=== PATIENT | male | born 1955 | race Asian ===

== ENCOUNTER 2017-08-10 10:30 | Emergency (ER) | payer BC ==
[2017-08-10 10:36] VITALS: TEMP 99.2; BMI 26.1
--- NOTE | 2017-08-10 10:37 | PDOC ---
History of Present Illness - General Chief Complaint: Shortness of Breath Stated Complaint: SOB Time Seen by Provider: 08/10/17 10:36 - History of Present Illness Initial Comments: 08/10/17 10:37 Mr. Richardson is a 62 yo male w/ pmh of HTN, HLD, DM, Lymphoma, and Asthma who presents for evaluation of 3 days of shortness of breath / cough with concurrent congestion and runny nose. He reports cough is non-productive and that he has had a previous episode requiring antibiotics last month while on vacation. He also reports subjective fever at home yesterday. The patient denies chest pain, headache and dizziness. Denies fever, chills, nausea, vomit, diarrhea and constipation. Denies dysuria, frequency, urgency and hematuria. Allergies: NKDA Past History - Past Medical History Allergies/Adverse Reactions: Allergies Allergy/AdvReac Type Severity Reaction Status Date / Time No Known Allergies Allergy Verified 08/10/17 10:32 Home Medications: Ambulatory Orders Acetaminophen W/ Codeine Liq [Tylenol W/Codeine Oral Solution -] 5 ml PO Q8H PRN #120 ml MDD 15 ml 08/10/17 Albuterol 2.5/Ipratropium 0.5 [Duoneb -] 1 neb NEB Q4H 08/10/17 Amlodipine Besylate 10 mg PO DAILY 08/10/17 Azithromycin 250 mg PO DAILY #3 tablet 08/10/17 Budesonide/Formeterol Fumarate [SYMBICORT 160/4.5mcg -] 1 inh PO BID 08/10/17 Ezetimibe/Simvastatin [Vytorin 10-10 mg Tablet] 1 tab PO ASDIR 08/10/17 Fenofibric Acid [Trilipix -] 135 mg PO ASDIR 08/10/17 Glimepiride 1 mg PO DAILY 08/10/17 Metformin HCl 500 mg PO BID 08/10/17 Mometasone Furoate [Asmanex 110Mcg -] 1 inh IH BID 08/10/17 Prednisone [Prednisone 50 MG TABLETS] 50 mg PO DAILY #4 tablet 08/10/17 Primidone [Mysoline -] 100 mg PO BID 08/10/17 Asthma: Yes COPD: No Diabetes: Yes HTN: Yes Hypercholesterolemia: Yes - Suicide/Smoking/Psychosocial Hx Smoking History: Current every day smoker Have you smoked in the past 12 months: Yes Number of Cigarettes Smoked Daily: 3 Information on smoking cessation initiated: Yes 'Breaking Loose' booklet given: 08/10/17 Hx Alcohol Use: No Drug/Substance Use Hx: No Substance Use Type: None Review of Systems - Review of Systems Comments:: 08/10/17 10:37 GENERAL/CONSTITUTIONAL: No fever or chills. No weakness. HEAD, EYES, EARS, NOSE AND THROAT: No change in vision. No ear pain or discharge. No sore throat. CARDIOVASCULAR: +Shortness of breath as described. No chest pain. RESPIRATORY: +Cough with wheezing over last 3 days, No hemoptysis. GASTROINTESTINAL: No nausea, vomiting, diarrhea or constipation. GENITOURINARY: No dysuria, frequency, or change in urination. MUSCULOSKELETAL: No joint or muscle swelling or pain. No neck or back pain. SKIN: No rash NEUROLOGIC: No headache, vertigo, loss of consciousness, or change in strength/ sensation. ENDOCRINE: No increased thirst. No abnormal weight change HEMATOLOGIC/LYMPHATIC: No anemia, easy bleeding, or history of blood clots. ALLERGIC/IMMUNOLOGIC: No hives or skin allergy. *Physical Exam - Vital Signs Last Vital Signs Temp Pulse Resp BP Pulse Ox 99.2 F 111 H 22 154/74 100 08/10/17 10:32 08/10/17 10:32 08/10/17 10:32 08/10/17 10:32 08/10/17 10:32 - Physical Exam Comments: 08/10/17 10:37 GENERAL: Awake, alert, and fully oriented, in no acute distress HEAD: No signs of trauma, normocephalic, atraumatic EYES: PERRLA, EOMI, sclera anicteric, conjunctiva clear ENT: Auricles normal inspection, hearing grossly normal, nares patent, oropharynx clear without exudates. Moist mucosa NECK: Normal ROM, supple, no lymphadenopathy, JVD, or masses LUNGS: +Patient diffusely wheezy to auscultation. HEART: Regular rate and rhythm, normal S1 and S2, no murmurs, rubs or gallops, peripheral pulses normal and equal bilaterally. ABDOMEN: Soft, nontender, normoactive bowel sounds. No guarding, no rebound. No masses EXTREMITIES: Normal inspection, Normal range of motion, no edema. No clubbing or cyanosis. NEUROLOGICAL: Cranial nerves II through XII grossly intact. Normal speech, normal gait, no focal sensorimotor deficits SKIN: Warm, Dry, normal turgor, no rashes or lesions noted. ED Treatment Course - LABORATORY CBC & Chemistry Diagram: 08/10/17 11:50 08/10/17 11:50 Medical Decision Making - Medical Decision Making 08/10/17 11:03 Mr. Richardson is a 62 yo male w/ pmh as described who presents for evaluation of SOB as described. Duoneb / prednisone given for symptomatic relief with labs / EKG/CXR ordered for evaluation of infectious / cardiac process. 08/10/17 13:08 No concern for acute process at this time. Labs grossly wnl as below. CXR clear , EKG normal. Patient to bedside who endorses patient has COPD and has been self treating with z-pack at home. Will continue azithromycin treatment outpatient. Prednisone 50 x 4 days also given. Patient reporting relief from symptoms and will follow-up as needed with PCP. Laboratory Results - last 24 hr 08/10/17 08/10/17 08/10/17 11:50 11:50 11:50 WBC 13.3 H RBC 4.82 Hgb 14.9 Hct 42.5 MCV 88.3 MCH 30.8 MCHC 34.9 RDW 14.8 Plt Count 178 MPV 9.0 Neutrophils % 80.4 Lymphocytes % 11.3 Monocytes % 7.2 Eosinophils % 0.2 Basophils % 0.9 Sodium 139 Potassium 3.5 Chloride 97 L Carbon Dioxide 26 Anion Gap 16 BUN 5 L Creatinine 1.0 Creat Clearance w eGFR > 60 Random Glucose 121 H Calcium 9.8 Total Bilirubin 0.6 AST 29 ALT 22 Alkaline Phosphatase 59 Creatine Kinase 221 Creatine Kinase Index 0.6 CK-MB (CK-2) 1.449 Troponin I < 0.02 B-Natriuretic Peptide Total Protein 8.0 Albumin 4.2 08/10/17 11:50 WBC RBC Hgb Hct MCV MCH MCHC RDW Plt Count MPV Neutrophils % Lymphocytes % Monocytes % Eosinophils % Basophils % Sodium Potassium Chloride Carbon Dioxide Anion Gap BUN Creatinine Creat Clearance w eGFR Random Glucose Calcium Total Bilirubin AST ALT Alkaline Phosphatase Creatine Kinase Creatine Kinase Index CK-MB (CK-2) Troponin I B-Natriuretic Peptide 402.50 H Total Protein Albumin *DC/Admit/Observation/Transfer Diagnosis at time of Disposition: COPD exacerbation - Prescriptions Prescriptions: Acetaminophen W/ Codeine Liq [Tylenol W/Codeine Oral Solution -] 5 ml PO Q6H PRN #120 ml MDD 20 ml PRN Reason: Cough Azithromycin 250 mg PO DAILY #3 tablet Prednisone [Prednisone 50 MG TABLETS] 50 mg PO DAILY #4 tablet - Referrals Referrals: Corwin Garcia MD [Primary Care Provider] - - Patient Instructions Printed Discharge Instructions: DI for Chronic Obstructive Pulmonary Disease Additional Instructions: Please return if any return of shortness of breath, fever, chills, pain, or other concerning symptoms. Follow-up with primary care provider next week for further evaluation. - Post Discharge Activity
[2017-08-10] MEDS ORDERED: ALBUTEROL SO4 2.5/IPRATROPIUM 0.5 INH SOL 3 ML VIAL.NEB. NEB ONE (11:11)
[2017-08-10] MEDS ORDERED: predniSONE 20 MG TABLET (UD) ONE (11:13)
[2017-08-10] MEDS ORDERED: predniSONE 10 MG TABLET (UD) ONE (11:13)
[2017-08-10] MEDS: ALBUTEROL SO4 2.5/IPRATROPIUM 0.5 INH SOL 3 ML VIAL.NEB. NEB SCH ×3 (11:18→13:40)
[2017-08-10] MEDS ORDERED: predniSONE 20 MG TABLET (UD) PO ONE (11:39)
[2017-08-10 12:04] LABS: BASO % 0.9 % (0-2.0); EOS % 0.2 % (0-4.5); HEMATOCRIT 42.5 % (35.4-49); HEMOGLOBIN 14.9 GM/dL (11.7-16.9); LYMPH % 11.3 % (8-40); MCH 30.8 pg (25.7-33.7); MCHC 34.9 g/dl (32.0-35.9); MEAN CELL VOLUME 88.3 fl (80-96); MONO % 7.2 % (3.8-10.2); NEUT % 80.4 % (42.8-82.8); PLATELET COUNT 178 K/MM3 (134-434); RBC 4.82 M/mm3 (4.00-5.60); RDW 14.8 % (11.9-15.9); WHITE BLOOD COUNT 13.3 K/mm3 (4.0-10.0)
[2017-08-10] MEDS ORDERED: ALBUTEROL SO4 0.083% IH SOL 2.5 MG/3 ML VIAL.NEB. NEB ONE ×2 (13:04→13:40)
--- NOTE | 2017-08-10 13:10 | PDOC ---
Attending Attestation - Resident Resident Name: Damian Wright - ED Attending Attestation I have performed the following: I have examined & evaluated the patient, The case was reviewed & discussed with the resident, I agree w/resident's findings & plan, Exceptions are as noted - HPI HPI: 08/10/17 13:06 "The patient is a 62 year old male, with a significant past medical history of asthma/COPD, hypertension, hyperlipidemia, diabetes, and lymphoma, who presents to the emergency department with, 3 days of shortness of breath, cough, congestion, and runny nose. He describes his cough as nonproductive. He reports a subjective fever yesterday but no measured temps. Pt has been using his albuterol nebulizer at home with some improvement. Pt was given azithromycin 500mg yesterday and today by his . He denies any recent nausea, vomit, diarrhea or constipation. He denies any recent chest pain. He denies any recent dysuria, frequency, urgency or hematuria. Allergies: NKA Past surgical history: None reported. Social History: Nonsmoker. Denies EtOH use and recreational drug use. Primary Care Physician: Dr. Garcia " - Physicial Exam PE: 08/10/17 13:08 "GENERAL: Awake, alert, and fully oriented, in no acute distress. HEAD: No signs of trauma EYES: PERRLA, EOMI, sclera anicteric, conjunctiva clear ENT: Auricles normal inspection, hearing grossly normal, nares patent, oropharynx clear without exudates. Moist mucosa NECK: Nontender, no stepoffs, Normal ROM, supple, no lymphadenopathy, JVD, or masses LUNGS: + expiratory wheezes HEART: Regular rate and rhythm, normal S1 and S2, no murmurs, rubs or gallops ABDOMEN: Soft, nontender, normoactive bowel sounds. No guarding, no rebound. No masses EXTREMITIES: Normal range of motion, no edema. No clubbing or cyanosis. No cords, erythema, or tenderness NEUROLOGICAL: Cranial nerves II through XII intact. 5/5 strength and sensation in all extremities, Normal speech, normal gait, normal cerebellar function SKIN: Warm, Dry, normal turgor, no rashes or lesions noted. " - Medical Decision Making 08/10/17 13:09 62 M with SOB and cough, found to be wheezing on exam. Consistent with COPD exacerbation. Will r/o PNA with CXR. Pt with no chest pain. No lower extremity edema or other clinical signs of heart failure. - Labs, trop, BNP - CXR - Nebs, steroids 08/10/17 14:09 CXR clear Labs wnl Pt reassessed s/p nebs and steroids - now with clear lungs. Subjectively reports improvement in his breathing and cough. Pt with mild tachycardia likely 2/2 nebulizer treatments. Denies CP/SOB at this time. Afebrile with no signs of infectious process. Pt is well appearing, with normal vitals. Clinically stable for DC at this time. I discussed the physical exam findings, ancillary test results and final diagnoses with the patient. I answered all of the patient's questions. The patient was satisfied with the care received and felt comfortable with the discharge plan and treatment plan. The patient agrees to follow up with the primary care physician within 24-72 hours. <Rashad Hernandez - Last Filed: 08/11/17 09:39> Attestations - Attestations 08/10/17 17:51 Documentation prepared by Luigi Dsouza, acting as medical center representative for Rashad Hernandez MD. <Luigi Dsouza - Last Filed: 08/10/17 17:51> - Attestations Physician Attestation: 08/11/17 09:39 I, Dr. Rashad Hernandez MD, attest that this document has been prepared under my direction and personally reviewed by me in its entirety. I further attest, that it accurately reflects all work, treatment, procedures and medical decision -making performed by me. <Rashad Hernandez - Last Filed: 08/11/17 09:39>
[2017-08-10 13:57] LABS: ALBUMIN 4.2 g/dl (3.4-5.0); ALK PHOS 59 U/L (45-117); ANION GAP 16 (8-16); BILIRUBIN,TOTAL 0.6 mg/dL (0.2-1.0); BLOOD UREA NITROGEN 5 mg/dL (7-18); CALCIUM 9.8 mg/dL (8.5-10.1); CHLORIDE 97 mmol/L (98-107); CO2 26 mmol/L (21-32); GLUCOSE,RANDOM 121 mg/dL (74-106); POTASSIUM 3.5 mmol/L (3.5-5.1); SGOT/AST 29 U/L (15-37); SGPT/ALT 22 U/L (12-78); SODIUM 139 mmol/L (136-145)
[2017-08-10 14:25] VITALS: BP 133/63; PULSE 103
--- NOTE | 2017-08-10 15:37 | EKG ---
Test Reason : Blood Pressure : / mmHG Vent. Rate : 107 BPM Atrial Rate : 107 BPM P-R Int : 144 ms QRS Dur : 090 ms QT Int : 316 ms P-R-T Axes : 074 062 076 degrees QTc Int : 421 ms SINUS TACHYCARDIA POSSIBLE LEFT ATRIAL ENLARGEMENT BORDERLINE ECG WHEN COMPARED WITH ECG OF 19-APR-2009 14:43, NO SIGNIFICANT CHANGE WAS FOUND Confirmed by CHASE ORDAZ MD ([id number]) on 08/10/2017 3:37:29 PM Referred By: Confirmed By:CHASE ORDAZ MD
[2017-08-11] MEDS ORDERED: predniSONE 20 MG TABLET (UD) PO ONE (11:00)
--- NOTE | 2017-08-11 21:45 | EKG ---
Test Reason : Blood Pressure : / mmHG Vent. Rate : 102 BPM Atrial Rate : 102 BPM P-R Int : 144 ms QRS Dur : 090 ms QT Int : 336 ms P-R-T Axes : 068 059 070 degrees QTc Int : 437 ms SINUS TACHYCARDIA POSSIBLE LEFT ATRIAL ENLARGEMENT BORDERLINE ECG WHEN COMPARED WITH ECG OF 10-AUG-2017 10:43, NO SIGNIFICANT CHANGE WAS FOUND Confirmed by CHASE ORDAZ MD ([id number]) on 08/11/2017 9:44:54 PM Referred By: Confirmed By:CHASE ORDAZ MD
== END 2017-08-10 15:05 | disposition home or self-care (01) ==
LOC: JER 10:30
PROC: 3E0F7GC Introduction of Other Therapeutic Substance into Respiratory Tract, Via Natural or Artificial Opening (ICD-10-PCS; principal; 2017-08-10)
DX: J44.1 Chronic obstructive pulmonary disease with (acute) exacerbation (principal); I10 Essential (primary) hypertension; E78.00 Pure hypercholesterolemia, unspecified; E11.9 Type 2 diabetes mellitus without complications; Z79.84 Long term (current) use of oral hypoglycemic drugs; J45.909 Unspecified asthma, uncomplicated; Z85.72 Personal history of non-Hodgkin lymphomas
CPT/HCPCS: 36415; 71045-TC-FY; 80053; 82550; 82553; 83880; 84484; 85025; 93005; 93010; 99284-25; J7620

== ENCOUNTER 2018-11-15 19:11 | Emergency (ER) | payer BC | END 2018-11-15 21:33 | disposition home or self-care (01) | LOC: JERFT 19:11 ==

== ENCOUNTER 2018-11-22 12:02 | Emergency (ER) | payer BC ==
[2018-11-22 12:23] VITALS: BP 161/79; PULSE 85; TEMP 98.4; BMI 29.8
--- NOTE | 2018-11-22 12:33 | PDOC ---
Suture Removal/Wound Check HPI - History of Present Illness Chief Complaint: Suture/Staple Removal(Here) Stated Complaint: STITCHES REMOVAL Time Seen by Provider: 11/22/18 12:25 History Source: Yes: Patient Exam Limitations: Yes: No Limitations Treated at: [facility] ED Date of Last ED visit: 11/15/18 - Previous ED Treatment Type of procedure performed on last visit: Yes: Laceration Repair Tetanus Immunization: Yes: Given at last ED visit Past History - Past Medical History Allergies/Adverse Reactions: Allergies Allergy/AdvReac Type Severity Reaction Status Date / Time No Known Allergies Allergy Verified 11/15/18 19:30 Home Medications: Ambulatory Orders Acetaminophen W/ Codeine Liq [Tylenol W/Codeine Oral Solution -] 5 ml PO Q8H PRN #120 ml MDD 15 ml 08/10/17 Albuterol 2.5/Ipratropium 0.5 [Duoneb -] 1 neb NEB Q4H 08/10/17 Amlodipine Besylate 10 mg PO DAILY 08/10/17 Azithromycin 250 mg PO DAILY #3 tablet 08/10/17 Budesonide/Formeterol Fumarate [SYMBICORT 160/4.5mcg -] 1 inh PO BID 08/10/17 Ezetimibe/Simvastatin [Vytorin 10-10 mg Tablet] 1 tab PO ASDIR 08/10/17 Fenofibric Acid [Trilipix -] 135 mg PO ASDIR 08/10/17 Glimepiride 1 mg PO DAILY 08/10/17 Mometasone Furoate [Asmanex 110Mcg -] 1 inh IH BID 08/10/17 Prednisone [Prednisone 50 MG TABLETS] 50 mg PO DAILY #4 tablet 08/10/17 Primidone [Mysoline -] 100 mg PO BID 08/10/17 metFORMIN HCL [Metformin HCl] 500 mg PO BID 08/10/17 Cephalexin [Keflex] 500 mg PO QID #20 capsule 11/15/18 Asthma: Yes COPD: No Diabetes: Yes HTN: Yes Hypercholesterolemia: Yes - Suicide/Smoking/Psychosocial Hx Smoking History: Never smoked Have you smoked in the past 12 months: No Number of Cigarettes Smoked Daily: 3 'Breaking Loose' booklet given: 08/10/17 Hx Alcohol Use: No Drug/Substance Use Hx: No Substance Use Type: None Suture Removal/Wound Check PE - Physical Exam Laceration/Wound Check Symptoms: reports: None Current Severity Level: None Maximum Severity Level: None Pain Localization: None Location of Laceration/Wound: left: Foot Pain Radiation: None *Review of Systems - Review of Systems Able to Perform ROS?: Yes All Other Systems: Reviewed and Negative *Physical Exam - Vital Signs Last Vital Signs Temp Pulse Resp BP Pulse Ox 98.4 F 85 20 161/79 98 11/22/18 12:22 11/22/18 12:22 11/22/18 12:22 11/22/18 12:22 11/22/18 12:22 - Physical Exam Integumentary: positive: Normal Color, Dry, Warm, Other (Wound edges well approximated. Granulation tissue present. No discharge or drainage from the wound. No erythema or signs of infection present.) Medical Decision Making - Medical Decision Making 11/22/18 12:34 A/P: 63-year-old male here for suture removal His sutures in placed for 8 days. Wound edges well approximated. No erythema present. Wound appears well-healed. 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
== END 2018-11-22 12:36 | disposition home or self-care (01) ==
LOC: JERFT 12:02
DX: Z48.817 Encounter for surgical aftercare following surgery on the skin and subcutaneous tissue (principal); Z48.02 Encounter for removal of sutures
CPT/HCPCS: 99281-25

== ENCOUNTER → 2020-05-30 | Day surgery (SDC) | payer BC ==
[2020-05-27 08:52] VITALS: BMI 28.2
[~2020-05-30] MED LIST: LIDOCAINE HCL 1%, 10 MG/ML (20ML VIAL) NR ONE; MIDAZOLAM HCL 2 MG/2 ML SINGLE DOSE VIAL ONE; ONDANSETRON 4 MG/2 ML VIAL IVPUSH PRN; PROPOFOL 20 ML ONE; SEVOFLURANE 250 ML BTL ONE; oxyCODONE HCL 5 MG TABLET PO PRN
[2020-05-30 13:53] VITALS: TEMP 97.8
[2020-05-30 14:13] VITALS: BP 160/78; PULSE 76
== END | disposition home or self-care (01) ==
LOC: JASU-SURG 04:25
PROVIDERS: ATTEND Surgery
PROC: 0JBL0ZX Excision of Right Upper Leg Subcutaneous Tissue and Fascia, Open Approach, Diagnostic (ICD-10-PCS; principal; 2020-05-30 10:30)
DX: C83.15 Mantle cell lymphoma, lymph nodes of inguinal region and lower limb (principal); I10 Essential (primary) hypertension; E11.9 Type 2 diabetes mellitus without complications
CPT/HCPCS: 82962; 87070; 87075; 87102; 87116; 87205; 87206; 87210; 88305-TC; 94760

== ENCOUNTER 2020-08-02 06:47 | Day surgery (SDC) | payer BC ==
[2020-08-02] MEDS ORDERED: DEXAMETHASONE SODIUM PHOSPHATE 10 MG, DIPHENHYDRAMINE 25 MG in SODIUM CHLORIDE 100 ML IVPB ONE (09:30)
[2020-08-02] MEDS ORDERED: ACETAMINOPHEN 325 MG TABLET (FP) PO ONE (09:30)
[2020-08-02] MEDS ORDERED: PALONOSETRON HCL 0.25 MG/5 ML VIAL IVPUSH ONE (09:30)
[2020-08-02] MEDS ORDERED: RITUXIMAB-ABBS 500 MG, RITUXIMAB-ABBS 190 MG in SODIUM CHLORIDE 621 ML IVPB ONE (10:00)
[2020-08-02 10:54] LABS: BASO % 1.8 % (0-2.0); HEMOGLOBIN 12.2 GM/dL (11.7-16.9); LYMPH % 17.8 % (8-40); MCH 32.5 pg (25.7-33.7); MCHC 34.8 g/dl (32.0-35.9); MEAN CELL VOLUME 93.2 fl (80-96); MEAN PLT VOLUME 7.9 fl (7.5-11.1); MONO % 10.5 % (3.8-10.2); NEUT % 65.9 % (42.8-82.8); PLATELET COUNT 245 K/MM3 (134-434); RBC 3.75 M/mm3 (4.00-5.60); RDW 15.2 % (11.9-15.9); WHITE BLOOD COUNT 6.8 K/mm3 (4.0-10.0)
[2020-08-02 11:11] LABS: CALCIUM 9.7 mg/dL (8.5-10.1); MAGNESIUM 1.8 mg/dL (1.8-2.4)
[2020-08-02 11:12] LABS: ALBUMIN 3.8 g/dl (3.4-5.0); BLOOD UREA NITROGEN 9.9 mg/dL (7-18)
[2020-08-02 11:14] LABS: BILIRUBIN,DIRECT 0.2 mg/dL (0.0-0.2); CREATININE 1.2 mg/dL (0.55-1.3); URIC ACID 4.3 mg/dL (2.6-7.2)
[2020-08-02 11:16] LABS: TOT PROT 7.7 g/dl (6.4-8.2)
[2020-08-02 11:17] LABS: BILIRUBIN,TOTAL 0.3 mg/dL (0.2-1)
[2020-08-02] MEDS ORDERED: BENDAMUSTINE HCL IVPB ONE (13:00)
[2020-08-02] MEDS ORDERED: SODIUM CHLORIDE IVPB ONE (13:00)
[2020-08-02] MEDS ORDERED: SODIUM CHLORIDE 0.9% 250 ML INFUS.BAG IV ONE (17:45)
[2020-08-02 19:07] VITALS: BP 159/75; PULSE 87; TEMP 98.5
== END 2020-08-02 19:00 | disposition home or self-care (01) ==
LOC: JONCCHEMO 06:47
PROVIDERS: ATTEND Internal Medicine Hematology & Oncology
DX: Z51.11 Encounter for antineoplastic chemotherapy (principal); C83.10 Mantle cell lymphoma, unspecified site
CPT/HCPCS: 36415; 80048; 80076; 83615; 83735; 84550; 85025; 96367; 96375; 96411; 96413; 96415; J2469; J9034; Q5115

== ENCOUNTER 2020-08-03 07:27 | Day surgery (SDC) | payer BC ==
[2020-08-03] MEDS ORDERED: DEXAMETHASONE SODIUM PHOSPHATE 6 MG, DIPHENHYDRAMINE 25 MG in SODIUM CHLORIDE 100 ML IVPB ONE (09:30)
[2020-08-03] MEDS ORDERED: SODIUM CHLORIDE 250 ML IV ONE (10:00)
[2020-08-03] MEDS ORDERED: BENDAMUSTINE HCL IVPB ONE (10:00)
[2020-08-03] MEDS ORDERED: SODIUM CHLORIDE IVPB ONE (10:00)
[2020-08-03 15:42] VITALS: TEMP 98.5
[2020-08-03 15:51] VITALS: BP 126/66; PULSE 67
[2020-08-03] MEDS ORDERED: PORTA CATH FLUSH 10 ML IVPUSH ONE (15:51)
== END 2020-08-03 15:59 | disposition home or self-care (01) ==
LOC: JONCCHEMO 07:27
PROVIDERS: ATTEND Internal Medicine Hematology & Oncology
DX: Z51.11 Encounter for antineoplastic chemotherapy (principal); C83.10 Mantle cell lymphoma, unspecified site
CPT/HCPCS: 96361; 96367; 96413; J9034

== ENCOUNTER 2020-08-04 07:39 | Day surgery (SDC) | payer BC ==
[2020-08-04] MEDS ORDERED: PEGFILGRASTIM-CBQV (UDENYCA) 6 MG/0.6 ML SYRINGE SQ ONE (10:00)
[2020-08-04 18:43] VITALS: BP 138/69; PULSE 70; TEMP 98.1
== END 2020-08-04 13:45 | disposition home or self-care (01) ==
LOC: JONCCHEMO 07:39
PROVIDERS: ATTEND Internal Medicine Hematology & Oncology
PROC: 3E013GC Introduction of Other Therapeutic Substance into Subcutaneous Tissue, Percutaneous Approach (ICD-10-PCS; principal; 2020-08-04)
DX: C83.10 Mantle cell lymphoma, unspecified site (principal); Z76.89 Persons encountering health services in other specified circumstances
CPT/HCPCS: 96372; Q5111

== ENCOUNTER 2020-08-30 07:23 | Day surgery (SDC) | payer BC ==
[2020-08-30] MEDS ORDERED: ACETAMINOPHEN 325 MG TABLET (FP) PO ONE (10:00)
[2020-08-30] MEDS ORDERED: PALONOSETRON HCL 0.25 MG/5 ML VIAL IVPUSH ONE (10:00)
[2020-08-30] MEDS ORDERED: DEXAMETHASONE SODIUM PHOSPHATE 8 MG, DIPHENHYDRAMINE 25 MG in SODIUM CHLORIDE 100 ML IVPB ONE (10:00)
[2020-08-30] MEDS ORDERED: RITUXIMAB PVVR IVPB ONE (10:30)
[2020-08-30] MEDS ORDERED: SODIUM CHLORIDE IVPB ONE ×2 (10:30→13:00)
[2020-08-30 11:42] LABS: BASO % 0.3 % (0-2.0); HEMATOCRIT 31.8 % (35.4-49); MCH 32.9 pg (25.7-33.7); MCHC 34.6 g/dl (32.0-35.9); MEAN CELL VOLUME 94.9 fl (80-96); MEAN PLT VOLUME 7.9 fl (7.5-11.1); MONO % 2.9 % (3.8-10.2); NEUT % 94.8 % (42.8-82.8); PLATELET COUNT 140 K/MM3 (134-434); RBC 3.35 M/mm3 (4.00-5.60); RDW 15.6 % (11.9-15.9); WHITE BLOOD COUNT 12.1 K/mm3 (4.0-10.0)
[2020-08-30 12:10] LABS: CALCIUM 9.5 mg/dL (8.5-10.1); MAGNESIUM 2.1 mg/dL (1.8-2.4)
[2020-08-30 12:11] LABS: ALBUMIN 3.6 g/dl (3.4-5.0); BLOOD UREA NITROGEN 23.9 mg/dL (7-18)
[2020-08-30 12:13] LABS: CREATININE 1.2 mg/dL (0.55-1.3); URIC ACID 4.5 mg/dL (2.6-7.2)
[2020-08-30 12:14] LABS: BILIRUBIN,DIRECT 0.3 mg/dL (0.0-0.2)
[2020-08-30 12:16] LABS: BILIRUBIN,TOTAL 0.7 mg/dL (0.2-1)
[2020-08-30] MEDS ORDERED: POTASSIUM CHLORIDE TABS 20 MEQ TABLET.ER (FP) PO ONE (12:30)
[2020-08-30 12:51] LABS: ANISOCYTOSIS 0; MACROCYTOSIS 0; PLATELET ESTIMATE DECREASED
[2020-08-30] MEDS ORDERED: BENDAMUSTINE HCL IVPB ONE (13:00)
[2020-08-30 17:27] VITALS: TEMP 98.4
[2020-08-30 17:31] VITALS: BP 121/61; PULSE 69
[2020-08-30] MEDS ORDERED: PORTA CATH FLUSH 10 ML IVPUSH ONE (17:31)
== END 2020-08-30 17:10 | disposition home or self-care (01) ==
LOC: JONCCHEMO 07:23
PROVIDERS: ATTEND Internal Medicine Hematology & Oncology
PROC: 3E04305 Introduction of Other Antineoplastic into Central Vein, Percutaneous Approach (ICD-10-PCS; principal; 2020-08-30)
PROC: 3E043GC Introduction of Other Therapeutic Substance into Central Vein, Percutaneous Approach (ICD-10-PCS; 2020-08-30)
DX: Z51.11 Encounter for antineoplastic chemotherapy (principal); C83.13 Mantle cell lymphoma, intra-abdominal lymph nodes; I10 Essential (primary) hypertension; Z91.14 Patient's other noncompliance with medication regimen
CPT/HCPCS: 36415; 80048; 80076; 83615; 83735; 84550; 85025; 96367; 96411; 96413; 96415; J2469; J9034; Q5119

== ENCOUNTER 2020-08-31 09:17 | Day surgery (SDC) | payer BC ==
[2020-08-31] MEDS ORDERED: DEXAMETHASONE SODIUM PHOSPHATE 6 MG, DIPHENHYDRAMINE 25 MG in SODIUM CHLORIDE 100 ML IVPB ONE (10:00)
[2020-08-31] MEDS ORDERED: SODIUM CHLORIDE 250 ML IV ONE (10:00)
[2020-08-31] MEDS ORDERED: BENDAMUSTINE HCL IVPB ONE (10:30)
[2020-08-31] MEDS ORDERED: SODIUM CHLORIDE IVPB ONE (10:30)
[2020-08-31] MEDS ORDERED: PEGFILGRASTIM (NEULASTA ONPRO) 6 MG/0.6 ML KIT SQ ONE (11:00)
[2020-08-31 18:15] VITALS: TEMP 99
[2020-08-31 18:32] VITALS: BP 127/62; PULSE 61
== END 2020-08-31 17:20 | disposition home or self-care (01) ==
LOC: JONCCHEMO 09:17
PROVIDERS: ATTEND Internal Medicine Hematology & Oncology
PROC: 3E04305 Introduction of Other Antineoplastic into Central Vein, Percutaneous Approach (ICD-10-PCS; principal; 2020-08-31)
PROC: 3E043GC Introduction of Other Therapeutic Substance into Central Vein, Percutaneous Approach (ICD-10-PCS; 2020-08-31)
PROC: 3E0437Z Introduction of Electrolytic and Water Balance Substance into Central Vein, Percutaneous Approach (ICD-10-PCS; 2020-08-31)
DX: Z51.11 Encounter for antineoplastic chemotherapy (principal); C83.13 Mantle cell lymphoma, intra-abdominal lymph nodes; I10 Essential (primary) hypertension; Z91.14 Patient's other noncompliance with medication regimen
CPT/HCPCS: 96361; 96367; 96372; 96409; J2505; J9034

== ENCOUNTER 2020-09-26 07:38 | Day surgery (SDC) | payer BC ==
[2020-09-26] MEDS ORDERED: DEXAMETHASONE SODIUM PHOSPHATE 6 MG, DIPHENHYDRAMINE 25 MG in SODIUM CHLORIDE 100 ML IVPB ONE (09:30)
[2020-09-26] MEDS ORDERED: PALONOSETRON HCL 0.25 MG/5 ML VIAL IVPUSH ONE (09:30)
[2020-09-26] MEDS ORDERED: ACETAMINOPHEN 325 MG TABLET (FP) PO ONE (09:30)
[2020-09-26] MEDS ORDERED: RITUXIMAB PVVR IVPB ONE (10:00)
[2020-09-26] MEDS ORDERED: SODIUM CHLORIDE IVPB ONE ×3 (10:00→13:30)
[2020-09-26 10:15] LABS: BASO % 0.7 % (0-2.0); EOS % 2.8 % (0-4.5); HEMATOCRIT 28.3 % (35.4-49); LYMPH % 7.9 % (8-40); MCH 32.1 pg (25.7-33.7); MCHC 35.1 g/dl (32.0-35.9); MEAN CELL VOLUME 91.3 fl (80-96); MEAN PLT VOLUME 8.5 fl (7.5-11.1); MONO % 20.3 % (3.8-10.2); NEUT % 68.3 % (42.8-82.8); PLATELET COUNT 263 10^3/uL (134-434); RDW 14.3 % (11.9-15.9); WHITE BLOOD COUNT 7.4 K/mm3 (4.0-10.0)
[2020-09-26 10:35] LABS: BLOOD UREA NITROGEN 18.3 mg/dL (7-18); CALCIUM 9.6 mg/dL (8.5-10.1)
[2020-09-26] MEDS ORDERED: POTASSIUM CHLORIDE TABS 20 MEQ TABLET.ER (FP) PO ONE (10:35)
[2020-09-26 10:36] LABS: ALBUMIN 3.2 g/dl (3.4-5.0)
[2020-09-26 10:37] LABS: URIC ACID 3.6 mg/dL (2.6-7.2)
[2020-09-26 10:38] LABS: BILIRUBIN,DIRECT 0.2 mg/dL (0.0-0.2)
[2020-09-26 10:40] LABS: TOT PROT 6.4 g/dl (6.4-8.2)
[2020-09-26 10:41] LABS: BILIRUBIN,TOTAL 0.4 mg/dL (0.2-1)
[2020-09-26 10:53] LABS: CREATININE 1.1 mg/dL (0.55-1.3)
[2020-09-26] MEDS ORDERED: RITUXIMAB ABBS IVPB ONE (11:30)
[2020-09-26 12:03] LABS: ANISOCYTOSIS 1+; MACROCYTOSIS 0; PLATELET ESTIMATE NORMAL
[2020-09-26] MEDS ORDERED: BENDAMUSTINE HCL IVPB ONE (13:30)
[2020-09-26 17:24] VITALS: TEMP 98.8
[2020-09-26 17:25] VITALS: BP 115/64; PULSE 74
[2020-09-28 07:11] LABS: BETA-2-MICROGLOBULIN 4.9 mg/L (0.6-2.4)
== END 2020-09-26 15:00 | disposition home or self-care (01) ==
LOC: JONCCHEMO 07:38
PROVIDERS: ATTEND Internal Medicine Hematology & Oncology
DX: Z51.11 Encounter for antineoplastic chemotherapy (principal); C83.13 Mantle cell lymphoma, intra-abdominal lymph nodes
CPT/HCPCS: 36415; 80048; 80076; 82232; 82784; 83615; 83735; 84550; 85025; 96367; 96375; 96411; 96413; 96415; J2469; J9034; Q5115

== ENCOUNTER 2020-09-27 07:08 | Day surgery (SDC) | payer BC ==
[2020-09-27] MEDS ORDERED: SODIUM CHLORIDE 250 ML IV ONE (09:00)
[2020-09-27] MEDS ORDERED: DEXAMETHASONE SODIUM PHOSPHATE 6 MG, DIPHENHYDRAMINE 25 MG in SODIUM CHLORIDE 100 ML IVPB ONE (09:30)
[2020-09-27] MEDS ORDERED: SODIUM CHLORIDE IVPB ONE (10:00)
[2020-09-27] MEDS ORDERED: BENDAMUSTINE HCL IVPB ONE (10:00)
[2020-09-27] MEDS ORDERED: PEGFILGRASTIM (NEULASTA ONPRO) 6 MG/0.6 ML KIT SQ ONE (10:30)
[2020-09-27 18:03] VITALS: TEMP 98.4
[2020-09-27 18:07] VITALS: BP 123/62; PULSE 76
[2020-09-27] MEDS ORDERED: PORTA CATH FLUSH 10 ML IVPUSH ONE (18:07)
== END 2020-09-27 14:20 | disposition home or self-care (01) ==
LOC: JONCCHEMO 07:08
PROVIDERS: ATTEND Internal Medicine Hematology & Oncology
PROC: 3E04305 Introduction of Other Antineoplastic into Central Vein, Percutaneous Approach (ICD-10-PCS; principal; 2020-09-27)
PROC: 3E043GC Introduction of Other Therapeutic Substance into Central Vein, Percutaneous Approach (ICD-10-PCS; 2020-09-27)
PROC: 3E0437Z Introduction of Electrolytic and Water Balance Substance into Central Vein, Percutaneous Approach (ICD-10-PCS; 2020-09-27)
DX: Z51.11 Encounter for antineoplastic chemotherapy (principal); C83.13 Mantle cell lymphoma, intra-abdominal lymph nodes
CPT/HCPCS: 96365; 96368; 96372; 96409; J2505; J9034

== ENCOUNTER 2020-10-25 06:42 | Day surgery (SDC) | payer BC ==
[2020-10-25] MEDS ORDERED: PALONOSETRON HCL 0.25 MG/5 ML VIAL IVPUSH ONE (10:00)
[2020-10-25] MEDS ORDERED: DEXAMETHASONE SODIUM PHOSPHATE 6 MG, DIPHENHYDRAMINE 25 MG in SODIUM CHLORIDE 100 ML IVPB ONE (10:00)
[2020-10-25] MEDS ORDERED: ACETAMINOPHEN 325 MG TABLET (FP) PO ONE (10:00)
[2020-10-25] MEDS ORDERED: RITUXIMAB ABBS IVPB ONE (10:30)
[2020-10-25] MEDS ORDERED: SODIUM CHLORIDE IVPB ONE ×2 (10:30→14:30)
[2020-10-25 10:43] LABS: BASO % 0.7 % (0-2.0); EOS % 3.2 % (0-4.5); HEMATOCRIT 29.1 % (35.4-49); HEMOGLOBIN 10.1 GM/dL (11.7-16.9); LYMPH % 17.1 % (8-40); MCH 32.2 pg (25.7-33.7); MCHC 34.9 g/dl (32.0-35.9); MEAN CELL VOLUME 92.3 fl (80-96); MEAN PLT VOLUME 9.4 fl (7.5-11.1); MONO % 17.1 % (3.8-10.2); NEUT % 61.9 % (42.8-82.8); PLATELET COUNT 140 10^3/uL (134-434); RBC 3.15 M/mm3 (4.00-5.60); RDW 14.5 % (11.9-15.9); WHITE BLOOD COUNT 6.2 K/mm3 (4.0-10.0)
[2020-10-25 11:09] LABS: CALCIUM 10.4 mg/dL (8.5-10.1); MAGNESIUM 2.3 mg/dL (1.8-2.4)
[2020-10-25 11:10] LABS: ALBUMIN 3.6 g/dl (3.4-5.0); BLOOD UREA NITROGEN 21.6 mg/dL (7-18)
[2020-10-25 11:12] LABS: BILIRUBIN,DIRECT 0.2 mg/dL (0.0-0.2); CREATININE 1.3 mg/dL (0.55-1.3)
[2020-10-25 11:14] LABS: TOT PROT 6.7 g/dl (6.4-8.2)
[2020-10-25 11:15] LABS: BILIRUBIN,TOTAL 0.4 mg/dL (0.2-1)
[2020-10-25] MEDS ORDERED: BENDAMUSTINE HCL IVPB ONE (14:30)
[2020-10-25 17:09] VITALS: TEMP 97.7
[2020-10-25 17:10] VITALS: BP 123/62; PULSE 74
[2020-10-26 14:09] LABS: IGA IMMUNOGLOBULIN 220 mg/dL (61-437); IGG QN IMMUNOGLOBULIN 633 mg/dL (603-1613); IGM QN SERUM <5 mg/dL (20-172)
[2020-10-27 06:06] LABS: BETA-2-MICROGLOBULIN 5.4 mg/L (0.6-2.4)
== END 2020-10-25 16:09 | disposition home or self-care (01) ==
LOC: JONCCHEMO 06:42
PROVIDERS: ATTEND Internal Medicine Hematology & Oncology
DX: Z51.11 Encounter for antineoplastic chemotherapy (principal); C83.13 Mantle cell lymphoma, intra-abdominal lymph nodes
CPT/HCPCS: 36415; 80048; 80076; 82232; 82784; 83615; 83735; 84550; 85025; 96367; 96375; 96411; 96413; 96415; J2469; J9034; Q5115

== ENCOUNTER 2020-10-26 06:53 | Day surgery (SDC) | payer BC ==
[2020-10-26] MEDS ORDERED: SODIUM CHLORIDE 250 ML IV ONE (09:00)
[2020-10-26] MEDS ORDERED: DEXAMETHASONE SODIUM PHOSPHATE 6 MG, DIPHENHYDRAMINE 25 MG in SODIUM CHLORIDE 100 ML IVPB ONE (10:00)
[2020-10-26] MEDS ORDERED: SODIUM CHLORIDE IVPB ONE (10:30)
[2020-10-26] MEDS ORDERED: BENDAMUSTINE HCL IVPB ONE (10:30)
[2020-10-26] MEDS ORDERED: PEGFILGRASTIM (NEULASTA ONPRO) 6 MG/0.6 ML KIT SQ ONE (11:00)
[2020-10-26 18:03] VITALS: TEMP 99.5
[2020-10-26 18:07] VITALS: BP 121/51; PULSE 83
== END 2020-10-26 15:45 | disposition home or self-care (01) ==
LOC: JONCCHEMO 06:53
PROVIDERS: ATTEND Internal Medicine Hematology & Oncology
PROC: 3E04305 Introduction of Other Antineoplastic into Central Vein, Percutaneous Approach (ICD-10-PCS; principal; 2020-10-26)
PROC: 3E013GC Introduction of Other Therapeutic Substance into Subcutaneous Tissue, Percutaneous Approach (ICD-10-PCS; 2020-10-26)
DX: Z51.11 Encounter for antineoplastic chemotherapy (principal); C83.13 Mantle cell lymphoma, intra-abdominal lymph nodes
CPT/HCPCS: 96360; 96372; 96375; 96409; J2505; J9034

== ENCOUNTER 2020-11-21 07:35 | Day surgery (SDC) | payer BC ==
[2020-11-21] MEDS ORDERED: ACETAMINOPHEN 325 MG TABLET (FP) PO ONE (09:30)
[2020-11-21] MEDS ORDERED: PALONOSETRON HCL 0.25 MG/5 ML VIAL IVPUSH ONE (09:30)
[2020-11-21] MEDS ORDERED: DEXAMETHASONE SODIUM PHOSPHATE 6 MG, DIPHENHYDRAMINE 25 MG in SODIUM CHLORIDE 100 ML IVPB ONE (09:30)
[2020-11-21] MEDS ORDERED: RITUXIMAB-ABBS 500 MG, RITUXIMAB-ABBS 175 MG in SODIUM CHLORIDE 607.5 ML IVPB ONE (10:00)
[2020-11-21 10:14] LABS: BASO % 0.9 % (0-2.0); EOS % 2.5 % (0-4.5); HEMATOCRIT 30.3 % (35.4-49); HEMOGLOBIN 10.5 GM/dL (11.7-16.9); LYMPH % 17.5 % (8-40); MCH 32.7 pg (25.7-33.7); MCHC 34.8 g/dl (32.0-35.9); MEAN CELL VOLUME 94.1 fl (80-96); MEAN PLT VOLUME 8.3 fl (7.5-11.1); NEUT % 62.1 % (42.8-82.8); PLATELET COUNT 195 10^3/uL (134-434); RBC 3.22 M/mm3 (4.00-5.60); RDW 15.6 % (11.9-15.9); WHITE BLOOD COUNT 9.3 K/mm3 (4.0-10.0)
[2020-11-21 10:42] LABS: ALBUMIN 3.7 g/dl (3.4-5.0); BLOOD UREA NITROGEN 17.9 mg/dL (7-18); CALCIUM 10.2 mg/dL (8.5-10.1); MAGNESIUM 2.3 mg/dL (1.8-2.4)
[2020-11-21 10:45] LABS: BILIRUBIN,DIRECT 0.1 mg/dL (0.0-0.2); CREATININE 1.3 mg/dL (0.55-1.3)
[2020-11-21 10:47] LABS: BILIRUBIN,TOTAL 0.3 mg/dL (0.2-1); TOT PROT 6.7 g/dl (6.4-8.2)
[2020-11-21] MEDS ORDERED: SODIUM CHLORIDE IVPB ONE (14:00)
[2020-11-21] MEDS ORDERED: BENDAMUSTINE HCL IVPB ONE (14:00)
[2020-11-21 16:56] VITALS: BP 141/64; PULSE 65; TEMP 97.9
== END 2020-11-21 15:30 | disposition home or self-care (01) ==
LOC: JONCCHEMO 07:35
PROVIDERS: ATTEND Internal Medicine Hematology & Oncology
DX: Z51.11 Encounter for antineoplastic chemotherapy (principal); C83.13 Mantle cell lymphoma, intra-abdominal lymph nodes
CPT/HCPCS: 36415; 80048; 80076; 83735; 85025; 96367; 96375; 96411; 96413; 96415; J2469; J9034; Q5115

== ENCOUNTER 2020-11-22 06:47 | Day surgery (SDC) | payer BC ==
[2020-11-22] MEDS ORDERED: SODIUM CHLORIDE 250 ML IV ONE (09:00)
[2020-11-22] MEDS ORDERED: DEXAMETHASONE SODIUM PHOSPHATE 6 MG, DIPHENHYDRAMINE 25 MG in SODIUM CHLORIDE 100 ML IVPB ONE (09:30)
[2020-11-22] MEDS ORDERED: BENDAMUSTINE HCL IVPB ONE (10:00)
[2020-11-22] MEDS ORDERED: SODIUM CHLORIDE IVPB ONE (10:00)
[2020-11-22] MEDS ORDERED: PEGFILGRASTIM (NEULASTA ONPRO) 6 MG/0.6 ML KIT SQ ONE (10:30)
[2020-11-22 17:38] VITALS: TEMP 98.9
[2020-11-22] MEDS ORDERED: PORTA CATH FLUSH 10 ML IVPUSH ONE (17:45)
[2020-11-22 17:46] VITALS: BP 116/56; PULSE 73
== END 2020-11-22 16:30 | disposition home or self-care (01) ==
LOC: JONCCHEMO 06:47
PROVIDERS: ATTEND Internal Medicine Hematology & Oncology
PROC: 3E04305 Introduction of Other Antineoplastic into Central Vein, Percutaneous Approach (ICD-10-PCS; principal; 2020-11-22)
PROC: 3E043GC Introduction of Other Therapeutic Substance into Central Vein, Percutaneous Approach (ICD-10-PCS; 2020-11-22)
PROC: 3E0437Z Introduction of Electrolytic and Water Balance Substance into Central Vein, Percutaneous Approach (ICD-10-PCS; 2020-11-22)
PROC: 3E013GC Introduction of Other Therapeutic Substance into Subcutaneous Tissue, Percutaneous Approach (ICD-10-PCS; 2020-11-22)
DX: Z51.11 Encounter for antineoplastic chemotherapy (principal); C83.13 Mantle cell lymphoma, intra-abdominal lymph nodes
CPT/HCPCS: 96361; 96365; 96372; 96409; J2505; J9034

== ENCOUNTER 2020-12-20 07:42 | Day surgery (SDC) | payer BC ==
[2020-12-20] MEDS ORDERED: PALONOSETRON HCL 0.25 MG/5 ML VIAL IVPUSH ONE (10:00)
[2020-12-20] MEDS ORDERED: ACETAMINOPHEN 325 MG TABLET (FP) PO ONE (10:00)
[2020-12-20] MEDS ORDERED: DEXAMETHASONE SODIUM PHOSPHATE 6 MG, DIPHENHYDRAMINE 25 MG in SODIUM CHLORIDE 100 ML IVPB ONE (10:00)
[2020-12-20] MEDS ORDERED: SODIUM CHLORIDE IVPB ONE ×2 (10:30→13:30)
[2020-12-20] MEDS ORDERED: RITUXIMAB ABBS IVPB ONE (10:30)
[2020-12-20 10:57] LABS: BASO % 0.7 % (0-2.0); HEMATOCRIT 33.2 % (35.4-49); HEMOGLOBIN 11.6 GM/dL (11.7-16.9); LYMPH % 9.9 % (8-40); MCH 33.7 pg (25.7-33.7); MEAN CELL VOLUME 96.2 fl (80-96); MEAN PLT VOLUME 8.5 fl (7.5-11.1); MONO % 15.1 % (3.8-10.2); NEUT % 70.3 % (42.8-82.8); PLATELET COUNT 140 10^3/uL (134-434); RBC 3.46 M/mm3 (4.00-5.60); RDW 14.4 % (11.9-15.9); WHITE BLOOD COUNT 6.1 K/mm3 (4.0-10.0)
[2020-12-20 11:18] LABS: CALCIUM 9.6 mg/dL (8.5-10.1)
[2020-12-20 11:19] LABS: ALBUMIN 3.9 g/dl (3.4-5.0); BLOOD UREA NITROGEN 13.2 mg/dL (7-18); MAGNESIUM 2.3 mg/dL (1.8-2.4)
[2020-12-20 11:21] LABS: BILIRUBIN,DIRECT 0.2 mg/dL (0.0-0.2); TRIGLYCERIDES 374 mg/dL (0-150)
[2020-12-20 11:22] LABS: CREATININE 1.1 mg/dL (0.55-1.3); LDL CHOLESTEROL (ONLY SJRH) 138 mg/dL (5-100)
[2020-12-20 11:23] LABS: BILIRUBIN,TOTAL 0.2 mg/dL (0.2-1); CHOLESTEROL 250 mg/dL (50-200); TOT PROT 7.1 g/dl (6.4-8.2)
[2020-12-20 11:24] LABS: HDL CHOLESTEROL 58 mg/dL (40-60); TRIGLYCERIDES 369 mg/dL (0-150)
[2020-12-20 11:25] LABS: LDL CHOLESTEROL (ONLY SJRH) 137 mg/dL (5-100)
[2020-12-20 11:26] LABS: HDL CHOLESTEROL 58 mg/dL (40-60)
[2020-12-20] MEDS ORDERED: BENDAMUSTINE HCL IVPB ONE (13:30)
[2020-12-20 16:53] VITALS: TEMP 98.2
[2020-12-20 16:54] VITALS: BP 126/57; PULSE 83
[2020-12-22 18:07] LABS: IGA IMMUNOGLOBULIN 137 mg/dL (61-437); IGG QN IMMUNOGLOBULIN 495 mg/dL (603-1613); IGM QN SERUM <5 mg/dL (20-172)
== END 2020-12-20 16:10 | disposition home or self-care (01) ==
LOC: JONCCHEMO 07:42
PROVIDERS: ATTEND Internal Medicine Hematology & Oncology
DX: Z51.11 Encounter for antineoplastic chemotherapy (principal); C83.13 Mantle cell lymphoma, intra-abdominal lymph nodes
CPT/HCPCS: 36415; 80048; 80061; 80076; 82784; 83615; 83718; 83721; 83735; 84478; 84550; 85025; 86704; 87340; 96367; 96375; 96411; 96413; 96415; J2469; J9034; Q5115

== ENCOUNTER 2020-12-21 07:56 | Day surgery (SDC) | payer BC ==
[2020-12-21] MEDS ORDERED: SODIUM CHLORIDE 250 ML IV ONE (09:00)
[2020-12-21] MEDS ORDERED: DEXAMETHASONE SODIUM PHOSPHATE 6 MG, DIPHENHYDRAMINE 25 MG in SODIUM CHLORIDE 100 ML IVPB ONE (10:00)
[2020-12-21] MEDS ORDERED: SODIUM CHLORIDE IVPB ONE (10:30)
[2020-12-21] MEDS ORDERED: BENDAMUSTINE HCL IVPB ONE (10:30)
[2020-12-21] MEDS ORDERED: PEGFILGRASTIM (NEULASTA ONPRO) 6 MG/0.6 ML KIT SQ ONE (11:00)
[2020-12-21] MEDS ORDERED: PORTA CATH FLUSH 10 ML IVPUSH ONE (17:55)
[2020-12-21 17:56] VITALS: BP 114/60; PULSE 74; TEMP 98.8
== END 2020-12-21 12:40 | disposition home or self-care (01) ==
LOC: JONCCHEMO 07:56
PROVIDERS: ATTEND Internal Medicine Hematology & Oncology
PROC: 3E04305 Introduction of Other Antineoplastic into Central Vein, Percutaneous Approach (ICD-10-PCS; principal; 2020-12-21)
PROC: 3E043GC Introduction of Other Therapeutic Substance into Central Vein, Percutaneous Approach (ICD-10-PCS; 2020-12-21)
PROC: 3E0437Z Introduction of Electrolytic and Water Balance Substance into Central Vein, Percutaneous Approach (ICD-10-PCS; 2020-12-21)
DX: Z51.11 Encounter for antineoplastic chemotherapy (principal); C83.13 Mantle cell lymphoma, intra-abdominal lymph nodes; I10 Essential (primary) hypertension; Z91.19 Patient's noncompliance with other medical treatment and regimen
CPT/HCPCS: 96361; 96367; 96372; 96409; J2505; J9034